=== PATIENT | female | born 1990 | race Caucasian/White ===

== ENCOUNTER → 2019-08-29 | Outpatient (REF) | payer OTHER | LOC: M LAB LCGH 11:34 | PROVIDERS: ATTEND Physician Assistant | DX: Z12.4 Encounter for screening for malignant neoplasm of cervix (principal); R87.612 Low grade squamous intraepithelial lesion on cytologic smear of cervix (LGSIL) | CPT/HCPCS: 87624; G0123 ==

== ENCOUNTER 2022-08-09 10:29 | Day surgery (SDC) | payer OTHER ==
[~2022-08-09] VITALS: Ht 162.6 cm; Wt 67.6 kg
[~2022-08-09 10:29] MED LIST: DEPO150I IM
[2022-08-09] MEDS ORDERED: LR 1,000 ML IV SCH ×3 (10:45→14:05)
[2022-08-09 11:20] LABS: HEMATOCRIT 41.6 % (36.0-47.0); HEMOGLOBIN 13.9 g/dl (12.0-15.5); MEAN CORPUSCULAR HEMOGLOBIN 29.4 pg (27.0-33.0); MEAN CORPUSCULAR HGB CONC 33.4 g/dl (32.0-36.5); MEAN CORPUSCULAR VOLUME 87.9 fl (80.0-96.0); PLATELET COUNT, AUTOMATED 249 10^3/uL (150-450); RED BLOOD COUNT 4.73 10^6/uL (4.00-5.40); WHITE BLOOD COUNT 7.4 10^3/uL (4.0-10.0)
[2022-08-09] MEDS ORDERED: MIDAZOLAM INJ 2MG/2ML VIAL As Ordered ONE (11:53)
[2022-08-09] MEDS ORDERED: LIDOCAINE 2% 100MG/5ML SDV (FOR ANES.) As Ordered ONE (11:53)
[2022-08-09] MEDS ORDERED: fentaNYL 100 MCG/2 ML INJECTION As Ordered ONE (11:53)
[2022-08-09] MEDS ORDERED: propofoL 200 MG/20 ML VIAL As Ordered ONE (11:53)
[2022-08-09] MEDS ORDERED: ONDANSETRON 4MG 2ML VIAL As Ordered ONE (11:54)
[2022-08-09] MEDS ORDERED: ACETAMINOPHEN 1000MG 100ML IV BAG As Ordered ONE (13:03)
[2022-08-09] MEDS ORDERED: KETOROLAC 60MG 2ML VIAL As Ordered ONE (13:09)
[2022-08-09] MEDS ORDERED: PHENYLephrine 500MCG 5ML (100MCG/ML) SYRINGE As Ordered ONE (13:44)
[2022-08-09] MEDS ORDERED: ONDANSETRON 4MG 2ML VIAL IV PRN (13:45)
[2022-08-09] MEDS ORDERED: METOCLOPRAMIDE INJ 10MG/2ML VIAL IV PRN (13:45)
[2022-08-09] MEDS: oxyCODONE 5MG TAB PO PRN ×2 (14:00→14:32)
[2022-08-09] MEDS: fentaNYL 100 MCG/2 ML INJECTION IV PRN ×2 (14:05→14:10)
[2022-08-09] MEDS ORDERED: PERCOCET 5MG/325MG TAB PO PRN (14:05)
[2022-08-09 15:45] VITALS: BP 120/81
== END 2022-08-09 15:50 | disposition home or self-care (01) ==
LOC: M SDC 10:29
PROVIDERS: ATTEND Specialist
DX: N84.0 Polyp of corpus uteri (principal); N90.7 Vulvar cyst; N92.0 Excessive and frequent menstruation with regular cycle; Z88.8 Allergy status to other drugs, medicaments and biological substances
CPT/HCPCS: 11421; 36415; 58563; 81025; 85027; 87428; 88305; J1100; J1885; J2370; J2405